=== PATIENT | male | born 1980 | race Caucasian/White ===

== ENCOUNTER 2017-09-12 15:34 | Emergency (ER) | payer OTHER ==
[~2017-09-12] VITALS: Ht 182.9 cm; Wt 63.5 kg
[2017-09-12] MEDS ORDERED: LIDODERM1 EACH TOP (15:59)
[2017-09-12] MEDS ORDERED: IBUPROFEN 800800 M1 PO (15:59)
[2017-09-12] MEDS ORDERED: FLEXERIL PO (15:59)
[2017-09-12] MEDS ORDERED: ACETAMINOPHEN-1 EAC1 PO (16:02)
[2017-09-12 16:36] VITALS: BP 130/91
== END 2017-09-12 16:37 | disposition home or self-care (01) ==
LOC: M.ERS 15:34
DX: S39.012A Strain of muscle, fascia and tendon of lower back, initial encounter (principal); M51.25 Other intervertebral disc displacement, thoracolumbar region; X58.XXXA Exposure to other specified factors, initial encounter; Y93.89 Activity, other specified; Y92.89 Other specified places as the place of occurrence of the external cause; Y99.0 Civilian activity done for income or pay